=== PATIENT | male | born 2000 | race Caucasian/White ===

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

== ENCOUNTER 2019-02-16 14:13 | Outpatient (RCR) | payer SELFPAY | END 2019-02-18 23:59 | LOC: NS 14:13 | DX: R69 Illness, unspecified (principal); Z71.3 Dietary counseling and surveillance ==

== ENCOUNTER 2019-03-09 14:35 | Outpatient (RCR) | payer SELFPAY | END 2019-03-20 23:59 | LOC: NS 14:35 | DX: R69 Illness, unspecified (principal); Z71.3 Dietary counseling and surveillance ==

== ENCOUNTER 2019-04-12 14:30 | Outpatient (RCR) | payer SELFPAY | END 2019-04-20 23:59 | LOC: NS 14:30 | DX: R69 Illness, unspecified (principal); Z71.3 Dietary counseling and surveillance ==

== ENCOUNTER 2019-05-08 15:38 | Outpatient (RCR) | payer SELFPAY | END 2019-05-20 23:59 | LOC: NS 15:38 | DX: Z71.3 Dietary counseling and surveillance (principal); R69 Illness, unspecified ==

== ENCOUNTER 2019-05-31 14:01 | Outpatient (RCR) | payer SELFPAY | END 2019-05-31 17:02 | disposition home or self-care (01) | LOC: NS 14:01 | DX: Z71.3 Dietary counseling and surveillance (principal); R69 Illness, unspecified ==

== ENCOUNTER 2020-09-25 13:44 | Outpatient (RCR) | payer OTHER, SELFPAY | END 2020-11-26 23:59 | LOC: IMMUN 13:44 | PROVIDERS: Visit Provider Family Medicine | DX: Z23 Encounter for immunization (principal) | CPT/HCPCS: 0001A; 0002A; 91300 ==